=== PATIENT | male | born 1975 | race Hispanic/Latino ===

== ENCOUNTER 2022-01-17 19:06 | Emergency (ER) | payer BC, MEDICARE ==
[2022-01-17] MEDS ORDERED: Bacitracin 1 PK ONE (19:36)
[2022-01-17] MEDS ORDERED: Boostrix 0.5 ML (Tdap) VIAL ONE (19:40)
[2022-01-17] MEDS ORDERED: Lidocaine 1% (PF) 30 ML VIAL ONE (20:27)
== END 2022-01-17 21:15 | disposition home or self-care (01) ==
LOC: CSHERS 19:06
DX: S61.214A Laceration without foreign body of right ring finger without damage to nail, initial encounter (principal); Z23 Encounter for immunization; W26.8XXA Contact with other sharp object(s), not elsewhere classified, initial encounter
CPT/HCPCS: 12001; 90471; 90715; J2001